=== PATIENT | female | born 1970 | race Caucasian/White ===

== ENCOUNTER 2020-12-21 16:27 | Emergency (ER) | payer OTHER ==
[2020-12-21 16:41] VITALS: BMI 27.6
[2020-12-21 17:03] LABS: HEMATOCRIT 39.1 % (32.4-45.2); HEMOGLOBIN 12.9 GM/dl (10.7-15.3); MCH 29.6 pg (25.7-33.7); MCHC 32.9 g/dl (32.0-36.0); MEAN PLT VOLUME 9.2 fl (7.5-11.1); PLATELET COUNT 207 K/MM3 (134-434); RBC 4.35 M/mm3 (3.60-5.2); RDW 13.1 % (11.6-15.6); WHITE BLOOD COUNT 7.5 K/mm3 (4.0-10.8)
[2020-12-21] MEDS ORDERED: IBUPROFEN 600 MG TABLET (FP) PO ONE ×2 (17:03→17:05)
[2020-12-21] MEDS ORDERED: FAMOTIDINE 10 MG TABLET PO ONE (17:11)
[2020-12-21] MEDS ORDERED: MAG HYDROX/AL HYDROX/SIMETH 30 ML UNIT-DOSE CUP PO ONE (17:11)
[2020-12-21] MEDS ORDERED: FAMOTIDINE 20 MG TABLET ONE (17:16)
[2020-12-21] MEDS ORDERED: MAG HYDROX/AL HYDROX/SIMETH 30 ML UNIT-DOSE CUP ONE (17:16)
[2020-12-21] MEDS ORDERED: FAMOTIDINE 20 MG TABLET PO ONE (17:19)
[2020-12-21 17:23] LABS: ALBUMIN 3.6 g/dl (3.4-5.0); BILIRUBIN,TOTAL 0.6 mg/dl (0.2-1); CALCIUM 8.6 mg/dl (8.5-10); CREATININE 0.8 mg/dl (0.55-1.3); TOT PROT 6.3 g/dl (6.4-8.2)
[2020-12-21 20:14] VITALS: BP 121/77; PULSE 62; TEMP 98.4
== END 2020-12-21 20:23 | disposition home or self-care (01) ==
LOC: FER 16:27
DX: R07.89 Other chest pain (principal)
CPT/HCPCS: 36415; 71045-TC-FY; 80053; 84484; 85027; 93005; 99285-25